=== PATIENT | female | born 1940 | race African-American/Black ===

== ENCOUNTER → 2019-05-20 | Day surgery (SDC) | payer BC ==
--- NOTE | 2019-05-24 16:30 | PATH ---
Surgical Pathology Report Patient Name: CHUY BOB I. [facility]. Rec. #: [id number] /Age/Gender: 1940 (Age: 79) / F Account: [id number] Location: [facility] Taken: 05/20/2019 Received: 05/20/2019 Reported: 05/24/2019 Physicians: Navarro Serrano M.D. Specimen(s) Received A: RIGHT BREAST SPECIMEN - WITH CALCIFICATIONS B: RIGHT BREAST SPECIMEN - WITHOUT CALCIFICATIONS Clinical History Right breast stereotactic biopsy for calcifications Final Diagnosis A. 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 SEE COMMENT. 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 B. RIGHT BREAST SPECIMEN WITHOUT CALCIFICATIONS, STEREOTACTIC BIOPSY: BENIGN BREAST TISSUE WITH USUAL DUCTAL HYPERPLASIA (UDH) AND MICROCALCIFICATION. Electronically Signed Brenton Ma M.D. Gross Description A. Received in formalin, labeled "right breast specimen with calcifications" are multiple cores of yellow-corley tissue measuring 2.0 x 2.0 x 0.2 cm in aggregate. Entirely submitted in two cassettes. B. Received in formalin, labeled "right breast specimen without calcifications" are multiple cores of yellow-corley tissue measuring 3.0 x 3.0 x 0.2 cm in aggregate. Entirely submitted in two cassettes. Time to formalin fixation: 5 minutes Total formalin fixation time: Approximately 7 hours TIMOTHY/05/20/2019 oh/05/20/2019
== END | disposition home or self-care (01) ==
LOC: FMAMMOTONE 12:44
PROVIDERS: ATTEND Family Medicine
PROC: 0HBT3ZX Excision of Right Breast, Percutaneous Approach, Diagnostic (ICD-10-PCS; principal; 2019-05-20)
DX: N60.81 Other benign mammary dysplasias of right breast (principal); N60.91 Unspecified benign mammary dysplasia of right breast; N64.89 Other specified disorders of breast; R92.1 Mammographic calcification found on diagnostic imaging of breast
CPT/HCPCS: 19081; 88305-TC